=== PATIENT | female | born 1970 | race Two or more races ===

== ENCOUNTER → 2024-09-01 | Outpatient (CLI) | payer MEDICAID, SELFPAY ==
--- NOTE | 2024-09-01 10:00 | XR_ITS ---
Examination: Abdomen sonogram, complete Date and time of exam: September 01, 2024 1039 hours INDICATIONS: Onset left lower abdominal pain beginning 3 months ago. Technique: Multiple real-time grayscale transabdominal sonographic images of the abdomen have been obtained. Findings: Normal gallbladder Normal common bile duct 0.3 cm Pancreatic head 1.7 cm Aorta not enlarged Liver 12.8 cm fatty infiltration no focal liver lesions Normal hepatopedal portal venous flow Patent IVC Right kidney 10.2 x 4.6 x 4.8 cm cortex 1.2 cm Minimal hydronephrosis Left kidney 10.2 x 9.3 x 4.1 cm cortex 2.0 cm Moderate left renal parenchymal scar formation Exam IMPRESSION: Normal gallbladder Normal common bile duct Fatty liver Minimal right hydronephrosis Moderate left renal parenchymal scar formation
--- NOTE | 2024-09-01 10:30 | XR_ITS ---
Examination: Transvaginal ultrasound of the pelvis, complete Technique: Transvaginal sonographic images pelvis performed using perez scale imaging Exam date and time: September 01, 2024 1053 hours INDICATIONS: Pelvic pain beginning 4 months ago FINDINGS: Absent uterus Ovaries obscured by bowel gas IMPRESSION: Limited study Ovaries obscured by bowel gas.
== END | disposition home or self-care (01) ==
LOC: CDIM 10:11
PROVIDERS: Referring Provider Nurse Practitioner Family; Visit Provider Nurse Practitioner Family
DX: K76.0 Fatty (change of) liver, not elsewhere classified (principal); N13.30 Unspecified hydronephrosis; N28.89 Other specified disorders of kidney and ureter
CPT/HCPCS: 76700; 76830

== ENCOUNTER → 2025-01-25 | Outpatient (CLI) | payer MEDICAID, SELFPAY ==
--- NOTE | 2025-01-25 | XR_ITS ---
Examination: Esophagram standard Fluoroscopy 16 spot fluoroscopic films of the esophagus Upright PA chest Upright soft tissue lateral neck single view Exam date and time: January 25, 2025 0928 hours INDICATIONS: Difficulty swallowing 2 years TECHNIQUE AND FINDINGS: Upright PA chest demonstrates normal heart size, minor probable scarring in the right upper lobe Soft tissue lateral neck demonstrates advanced degenerative disc disease C5-C6, C6-C7 with moderate cervical spondylosis No opaque foreign body projects in distribution of the esophagus Patient swallowed thin barium with primary peristaltic esophageal waves identified Mild intermittent gastroesophageal reflux No esophageal ulceration, no constricting esophageal lesion No stricture at the gastroesophageal junction Fluoroscopy 0.08 minute 16 spot fluoroscopic films IMPRESSION: Primary peristaltic esophageal waves noted Mild intermittent gastroesophageal reflux No stricture at the gastroesophageal junction
== END | disposition home or self-care (01) ==
LOC: CDIM 09:05
PROVIDERS: PCP Nurse Practitioner Family; Referring Provider Nurse Practitioner Family; Visit Provider Nurse Practitioner Family
DX: K21.9 Gastro-esophageal reflux disease without esophagitis (principal)
CPT/HCPCS: 74220; A4699

== ENCOUNTER → 2025-08-16 | Outpatient (CLI) | payer MEDICAID, SELFPAY ==
--- NOTE | 2025-08-16 13:00 | XR_ITS ---
Examination: Breast ultrasound complete, bilateral Date and time of exam: August 16, 2025, 1302 hours INDICATIONS: Mammogram May 25, 2024 focal asymmetry upper outer right breast on the spot compression views, 10 mm Technique: Real-time grayscale ultrasonographic imaging bilateral breasts, including all 4 quadrants as well as nipple retroareolar and axillary regions. Findings: Sonographic images right and left breast demonstrate no cystic or solid masses IMPRESSION: BI-RADS Category 1: Negative studies
--- NOTE | 2025-08-16 14:00 | XR_ITS ---
Examination: Diagnostic digital mammography, bilateral Computer aided detection 3-D breast Tomosynthesis, bilateral Date and time of exam: August 16, 2025, 1316 hours INDICATIONS: Mammogram 06/06/2024 6 mm focal asymmetry upper outer right breast, measuring 10 mm on the mammogram May 25, 2024 Technique: Nonmagnified MLO, CC views of the breasts to been obtained, reconstructed from 3-D Tomosynthesis images. R2 computer aided detection program utilized for evaluation of suspicious masses and/or abnormal calcifications. 3-D Tomosynthesis images obtained. Findings: Scattered areas of fibroglandular density. 10 mm nodule is confirmed outer right breast on the spot compression cc view Impression: 3: Probably benign findings Recommend 6-month bilateral mammography follow-up.
== END | disposition home or self-care (01) ==
LOC: CDIM 12:54
PROVIDERS: PCP Nurse Practitioner Family; Referring Provider Nurse Practitioner Family; Visit Provider Nurse Practitioner Family
DX: R92.2 Inconclusive mammogram (principal)
CPT/HCPCS: 76641; 77062; 77066; G0279